=== PATIENT | male | born 1995 | race Two or more races ===

== ENCOUNTER 2023-07-28 21:03 | Emergency (ER) | payer MEDICAID, OTHER ==
[~2023-07-28] VITALS: Ht 180.3 cm; Wt 109.9 kg
[2023-07-28 21:45] VITALS: BP 130/66; PULSE 61; RESP 20; O2SAT 99
[2023-07-29] MEDS ORDERED: HYDROcodone-ACET 5/325MG TAB PO ONE (01:45)
[2023-07-29] MEDS ORDERED: HYDR-4902 PO (01:49)
== END 2023-07-29 05:43 | disposition home or self-care (01) ==
LOC: ER 21:03
DX: S62.396A Other fracture of fifth metacarpal bone, right hand, initial encounter for closed fracture (principal); X58.XXXA Exposure to other specified factors, initial encounter; Y93.89 Activity, other specified; Y92.89 Other specified places as the place of occurrence of the external cause; Y99.8 Other external cause status
CPT/HCPCS: 29130; 73130

== ENCOUNTER 2025-02-05 13:29 | Emergency (ER) | payer MEDICAID ==
[~2025-02-05] VITALS: Ht 180.3 cm; Wt 103.5 kg
[~2025-02-05 13:29] MED LIST: HYDR-4902 PO
--- NOTE | 2025-02-05 14:10 | ECG ---
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
[2025-02-05 14:27] LABS: Urine Bacteria None Seen /hpf (None Seen)
[2025-02-05 14:40] LABS: Basophils # (auto) 0 10 ^3/uL (0-0.2); Basophils % (auto) 0.6 % (0.0-2.0); Eosinophils # (auto) 0 10 ^3/uL (0-0.8); Hematocrit 47.5 % (41.0-53.0); Hemoglobin 16.4 g/dL (13.5-17.5); Lymphocytes # (auto) 0.9 10 ^3/uL (0.4-5.4); Lymphocytes % (auto) 19.6 % (10.0-50.0); Mean Corpuscular Hemoglobin 29.7 pg (28.0-32.0); Mean Corpuscular Hgb Conc. 34.6 g/dL (32.0-36.0); Monocytes # (auto) 0.5 10 ^3/uL (0-1.3); Monocytes % (auto) 10.1 % (0.0-12.0); Neutrophils # (auto) 3.2 10 ^3/uL (1.6-8.6); Neutrophils % (auto) 69.7 % (37.0-80.0); Nucleated Red Blood Cells % 0.2 %; Platelet Count (auto) 121 10^3/uL (140-450); Red Blood Cells 5.52 10^6/uL (4.5-5.90); Red Cell Distribution Width 13.8 % (11.8-14.3); White Blood Cell 4.5 10^3/uL (4.4-10.8)
[2025-02-05 14:46] LABS: Urine Blood TRACE /uL (Negative); Urine Clarity Clear (Clear); Urine Color Yellow (Yellow); Urine Mucus FEW (None Seen); Urine Protein, UAD 1+ (Negative); Urine Specific Gravity 1.028 (1.001-1.035); Urine Squamous Epithelial Cell None Seen /hpf (<5); Urine Urobilinogen Normal (Negative); Urine WBC 2 /HPF (0-3); Urine pH 6.5 (5.0-9.0)
[2025-02-05 14:50] LABS: Chloride 102 mmol/L (98-107); Potassium 3.7 mmol/L (3.5-5.1); Sodium 138 mmol/L (136-145)
[2025-02-05 14:51] LABS: Anion Gap 9 (5-15); Carbon Dioxide 27 mmol/L (20-31)
[2025-02-05 14:57] LABS: BUN/Creatinine Ratio 5.6 (10.0-20.0); Blood Urea Nitrogen < 5 mg/dL (9-23); Glucose 114 mg/dL (74-106)
--- NOTE | 2025-02-05 15:02 | ED.PDOC ---
History of Present Illness HPI Comments 29 year old male presents to the ED with chief complaint of dizziness. Patient reports that he had bought a new vape pen from a shop and after using it yesterday, he began to experiencing dizziness with associated headache, nausea, body tingling, blurred vision, chest pain and a syncopal episode. Patient notes he took some Ibuprofen with no relief in his headache or chest pain. Patient unsure if his vape pen was laced. Patient denies any vomiting, diarrhea, abdominal pain, SOB, fall, or head injury. Chief Complaint: Dizziness Time Seen by MD: 14:51 Reviewed Notes: Nurses Notes, Medications, Allergies Allergies: Coded Allergies: NO KNOWN ALLERGIES (Unverified , 07/28/23) Home Meds Active Scripts Hydrocodone-Acetaminophen (Hydrocodone Bitartrate/AC 5-325 mg) 1 Tab Tab, 1 TAB PO Q6HR, #10 TAB as needed for pain Prov:YONY NEWTON NP 07/29/23 Information Source: Patient Mode of Arrival: Ambulatory Severity: Moderate Timing: Days Duration: Since onset Prehospital treatment: None Past Medical History PAST MEDICAL HISTORY: Denies Surgical History: Denies all surgeries Family History Family History: Reviewed,noncontributory to illness Social History Smoker: Non-Smoker Alcohol: Denies ETOH Use Drugs: Marijuana Lives In: Home Constitutional: denies: chills, diaphoresis, fatigue, fever, malaise, sweats, weakness, others EENTM: reports: blurred vision; denies: double vision, ear bleeding, ear discharge, ear drainage, ear pain, ear ringing, eye pain, eye redness, hearing loss, mouth pain, mouth swelling, nasal discharge, nose bleeding, nose congestion, nose pain, photophobia, tearing, throat pain, throat swelling, voice changes, others Respiratory: denies: cough, hemoptysis, orthopnea, SOB at rest, shortness of breath, SOB with excertion, stridor, wheezing, others Cardiovascular: reports: chest pain, syncope; denies: dizzy spells, diaphoresis, Dyspnea on exertion, edema, irregular heart beat, left arm pain, lightheadedness, palpitations, PND, others Gastrointestinal: reports: nausea; denies: abdomen distended, abdominal pain, blood streaked bowels, constipated, diarrhea, dysphagia, difficulty swallowing, hematemesis, melena, poor appetite, poor fluid intake, rectal bleeding, rectal pain, vomiting, others Genitourinary: denies: burning, dysuria, flank pain, frequency, hematuria, incontinence, penile discharge, penile sore, pain, testicle pain, testicle swelling, urgency, others Neurological: reports: dizziness, headache, tingling; denies: fainting, left sided numbness, left sided weakness, numbness, paresthesia, pre-existing deficit, right sided numbness, right sided weakness, seizure, speech problems, t remors, weakness, others Musculoskeletal: denies: back pain, gout, joint pain, joint swelling, muscle pain, muscle stiffness, neck pain, others Integumetry: denies: bruises, change in color, change in hair/nails, dryness, laceration, lesions, lumps, rash, wounds, others Allergic/Immunocompromised: denies: Difficulty Healing, Frequent Infections, Hives, Itching, others Hematologic/Lymphatic: denies: anemia, blood clots, easy bleeding, easy bruising, swollen glands, others Endocrine: denies: excessive hunger, excessive sweating, excessive thirst, excessive urination, flushing, intolerance to cold, intolerance to heat, unexplained weight gain, unexplained weight loss, others Psychiatric: denies: anxiety, bipolar disorder, depression, hopeless, panic disorder, schizophrenia, sleepless, suicidal, others All Other Systems: Reviewed and Negative Physical Exam General Appearance: No Apparent Distress, Normal HEENT: Normal ENT Inspection, PERRL/EOMI Neck: Full Range of Motion, Non-Tender, Normal, Normal Inspection Respiratory: Chest Non-Tender, Lungs Clear, No Accessory Muscle Use, No Respiratory Distress, Normal Breath Sounds Cardiovascular: No Edema, No JVD, No Murmur, No Gallop, Normal Peripheral Pulses, Regular Rate/Rhythm Breast Exam: Deferred Gastrointestinal: No Organomegaly, Non Tender, No Pulsatile Mass, Normal Bowel Sounds, Soft Genitalia: Deferred Pelvic: Deferred Rectal: Deferred Extremities: No calf tenderness, Normal capillary refill, Normal inspection, Normal range of motion, Non-tender, No pedal edema Musculoskeletal : Apperance: Normal 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 Was a procedure done?: No Differential Dx Considerations may include: Substance abuse, viral syndrome X-Ray, Labs, Meds, VS Vital Signs Date Time Temp Pulse Resp B/P (MAP) Pulse Ox O2 Delivery O2 Flow Rate FiO2 02/05/25 16:26 Room Air* 0 21 02/05/25 14:17 98.8 87 19 139/87 (104) 99 98.8 02/05/25 13:59 71 02/05/25 13:59 97.5 96 18 158/92 (114) 96 97.5 Lab Test 02/05/25 17:20 02/05/25 15:27 02/05/25 14:20 02/05/25 14:19 Range/Units Troponin I High Sensitivity Pending 3 L 4 </=54 ng/L Urine Color Yellow Yellow Urine Clarity Clear Clear Urine pH 6.5 5.0-9.0 Urine Specific [place] 1.028 1.001-1.035 Urine Protein 1+ H Negative Urine Ketones Negative Negative Urine Blood Trace H Negative /uL Urine Nitrite Negative Negative Urine Bilirubin Negative Negative Urine Urobilinogen Normal Negative mg/dL Urine Leukocyte Esterase Negative Negative /uL Urine RBC 7 0 - 3 /hpf Urine Microscopic WBC 2 0-3 /HPF Urine Squamous Epithelial Cells None seen <5 /hpf Urine Bacteria None seen None Seen /hpf Urine Mucus Few None Seen Urine Glucose Normal Normal mg/dL White Blood Count 4.5 4.4-10.8 10^3/uL Red Blood Count 5.52 4.5-5.90 10^6/uL Hemoglobin 16.4 13.5-17.5 g/dL Hematocrit 47.5 41.0-53.0 % Mean Corpuscular Volume 86.0 80.0-100.0 fL Mean Corpuscular Hemoglobin 29.7 28.0-32.0 pg Mean Corpuscular Hemoglobin Concent 34.6 32.0-36.0 g/dL Red Cell Distribution Width 13.8 11.8-14.3 % Platelet Count 121 L 140-450 10^3/uL Mean Platelet Volume 10.4 6.9-10.8 fL Neutrophils (%) (Auto) 69.7 37.0-80.0 % Lymphocytes (%) (Auto) 19.6 10.0-50.0 % Monocytes (%) (Auto) 10.1 0.0-12.0 % Eosinophils (%) (Auto) 0.0 0.0-7.0 % Basophils (%) (Auto) 0.6 0.0-2.0 % Neutrophils # (Auto) 3.2 1.6-8.6 10 ^3/uL Lymphocytes # (Auto) 0.9 0.4-5.4 10 ^3/uL Monocytes # (Auto) 0.5 0-1.3 10 ^3/uL Eosinophils # (Auto) 0 0-0.8 10 ^3/uL Basophils # (Auto) 0 0-0.2 10 ^3/uL Nucleated Red Blood Cells 0.2 % Sodium Level 138 136-145 mmol/L Potassium Level 3.7 3.5-5.1 mmol/L Chloride Level 102 98-107 mmol/L Carbon Dioxide Level 27 20-31 mmol/L Anion Gap 9 5-15 Blood Urea Nitrogen < 5 L 9-23 mg/dL Creatinine 0.89 0.700-1.30 mg/dL Glomerular Filtration Rate Calc 119 >90 mL/min BUN/Creatinine Ratio 5.6 L 10.0-20.0 Serum Glucose 114 H 74-106 mg/dL Calcium Level 10.0 8.7-10.4 mg/dL Test 02/05/25 13:57 Range/Units POC Glucose 121 H 70-106 mg/dl Current Medications Medications (Trade) Dose Ordered Sig/Briana Route Start Time Stop Time Status Last Admin Sodium Chloride 1,000 ml @ 1,000 mls/hr Q1H ONCE IV 02/05/25 14:45 02/05/25 15:44 DC 02/05/25 16:20 Ondansetron HCl (Zofran) 4 mg ONCE ONCE IV 02/05/25 14:45 02/05/25 14:46 DC 02/05/25 16:20 Ketorolac Tromethamine (Toradol Injection) 15 mg ONCE ONCE IV 02/05/25 14:45 02/05/25 14:46 DC 02/05/25 16:20 Acetaminophen (Tylenol Tablet) 650 mg ONCE ONCE PO 02/05/25 14:45 02/05/25 14:46 DC 02/05/25 16:20 Time of 1ST Reevaluation: 15:51 Reevaluation 1ST: Unchanged Patient Education/Counseling: Diagnosis, Treatment Family Education/Counseling: No Family Present Additional Information Previous visits reviewed: 07/28/23 fracture to fifth metacarpal The following tests were ordered, and results were reviewed by me: EKG, Troponin, UA, CBC, BMP Additional Information was gathered from interviewing the following independent historians: None I reviewed and agreed with the following test results read by other providers: None I discussed treatment and results with medical personnel and: patient Comprehensive systems review obtained and negative except for what is stated in the HPI. Departure 1 Departure Time of Disposition: 17:30 (Patient presents with dizziness. Patient's workup is benign. Patient is feeling well now. In my judgment is likely secondary to substance use. We will discharge patient home with outpatient follow up) Impression: Primary Impression: Dizziness Disposition: 01 HOME / SELF CARE / HOMELESS Condition: Stable Additional Instructions: Your workup today was benign. You can take Tylenol or Motrin as needed for pain. You should follow up with your regular doctor within 1 week. You should stay well rested and well hydrated. If your symptoms worsen or you have any other concerns please return to the emergency room. Discharged With: Self Critical Care Note Critical Care Time?: No Stability Stability form required: No Heart Score Heart Score: Heart Score Response (Comments) Value History N/A 0 EKG N/A 0 Age N/A 0 Risk Factors N/A 0 Troponin N/A 0 Total 0 I personally scribed for MARCE SIMMS MD ([email or web address]) on 02/05/25 at 15:02. Electronically submitted by Saul Dixon ([email or web address]). MARCE SIMMS MD February 05, 2025 15:02
[2025-02-05] MEDS: SODIUM CHLORIDE 0.9% 1,000 ML IV ONE (16:20)
[2025-02-05] MEDS: ACETAMINOPHEN 325 MG TAB PO ONE (16:20)
[2025-02-05] MEDS: KETOROLAC TROMETH 30 MG/ML 1ML VIAL IV ONE (16:20)
[2025-02-05] MEDS: ONDANSETRON HCL 4 MG/2 ML VIAL IV ONE (16:20)
[2025-02-05 17:49] VITALS: BP 142/89; PULSE 82; RESP 20; TEMP 98.2; O2SAT 98
== END 2025-02-05 17:48 | disposition home or self-care (01) ==
LOC: ER 13:33
DX: R42 Dizziness and giddiness (principal); H53.8 Other visual disturbances; R07.9 Chest pain, unspecified; R20.2 Paresthesia of skin; R55 Syncope and collapse
CPT/HCPCS: 36415; 80048; 81001; 82947; 84484; 85025; 93005; 96361; 96374; 96375; 99284; J1885; J2405; J7030; 82962